=== PATIENT | female | born 1930 | race Caucasian/White ===

== ENCOUNTER 2018-01-13 16:02 | Observation (INO) ==
--- NOTE | 2018-01-13 16:35 | Emergency Department Note ---
Disposition Clinical Impression: Transient cerebral ischemia Qualifiers: Transient cerebral ischemia type: unspecified Qualified Code(s): G45.9 - Transient cerebral ischemic attack, unspecified Disposition: Admitted As Inpatient Time of Disposition: 18:00 (Dr Henson) Neuro HPI - General Chief Complaint: ED Neuro Symptoms/Deficit Stated Complaint: numbness right arm Time Seen by Provider: 01/13/18 16:25 Source: patient, family Limitations: no limitations Nursing Notes Reviewed: Yes Vital Signs Reviewed: Yes - History of Present Illness Onset of Symptoms Date: 01/13/18 Onset of Symptoms Time: 15:00 Timing confirmed by: family member Location: right face (lip), right arm (hand) History of same: No Severity: mild Quality: weakness, tingling Symptoms Improving: Yes Improves with: time Worsens with: none Context: other (She went to bed around 2 PM after lunch and woke up around 3:15 complaining of numbness on the right forearm and perioral area. Daughter states she was not feeling well today and has been sleeping but was able to eat lunch with no complications. The patient's symptom is currently improved. The daughter thought she may have had some drooping on her right face. The patient was also recently prescribed through [facility] for her A. fib and was supposed to start it today.) On Anticoagulants: Yes (Aspirin and supposed to start xarelto today) Associated symptoms: Reports: fever/chills, weakness. Denies: confusion, chest pain, cough, diaphoresis, headaches, loss of appetite, malaise, nausea/vomiting , vertigo, seizures, shortness of breath, syncope Treatments Prior to Arrival: Aspirin - Related Data Home Medications: Home Medications Medication Instructions Recorded Confirmed Acetaminophen [Acetaminophen ER] 650 mg PO BID 05/21/17 01/13/18 Aspirin 81 mg PO DAILY 05/21/17 01/13/18 Cholecalciferol (D-3) [Vitamin D] 2,000 unit PO DAILY 05/21/17 01/13/18 Cyanocobalamin (Vitamin B-12) 500 mcg PO DAILY 05/21/17 01/13/18 [Vitamin B12] Diltiazem CD (24hr) [Cardizem CD] 240 mg PO DAILY 05/21/17 01/13/18 Hyoscyamine SL [Levsin SL] 0.125 mg SL TID 05/21/17 01/13/18 Lisinopril [Zestril] 40 mg PO DAILY 05/21/17 01/13/18 Loratadine [Claritin] 10 mg PO DAILY 05/21/17 01/13/18 Lovastatin [Altoprev] 80 mg PO DAILY 05/21/17 01/13/18 Omeprazole [PriLOSEC] 20 mg PO DAILY 05/21/17 01/13/18 Furosemide [Lasix] 20 mg PO DAILY 10/05/17 01/13/18 Allergies/Adverse Reactions: Allergies Allergy/AdvReac Type Severity Reaction Status Date / Time codeine Allergy Agitated Verified 01/13/18 16:03 All systems ED: reviewed and negative except as stated. Review of Systems: As Per HPI Past Medical History - Past Medical History Medical history: Reports: arthritis, COPD, coronary artery disease, fibromyalgia , GERD, hyperlipidemia, hypertension, other Surgical history: Reports: cataract, cholecystectomy Psychiatric history: Reports: no psych history BELT CUTTER history: Reports: no BELT CUTTER history - Social History Smoking Status: Never smoker Smokeless Tobacco Status: No Alcohol use: Reports: occasionally Drug use: Reports: none Physical Exam - General Limitations: no limitations General appearance: alert - Head Head exam: atraumatic, normocephalic, normal inspection - Eye Eye exam: Present: normal appearance, PERRL, EOMI - ENT ENT exam: normal exam, normal oropharynx, mucous membranes moist - Neck Neck exam: Present: normal inspection, full ROM, trachea midline - Chest Chest inspection: Present: normal inspection, symmetric chest wall rise - Respiratory Respiratory exam: Present: normal lung sounds bilaterally - Cardiovascular Cardiovascular exam: Present: regular rate, irregular rhythm, normal heart sounds. Absent: JVD - Abdominal Exam Abdominal exam: Present: soft, Non-Tender. Absent: tenderness, distention, guarding, rebound, rigidity - Extremities Exam Extremities exam: Present: normal inspection, full ROM. Absent: tenderness, pedal edema - Expanded Lower Extremity Exam Hip/Pelvis exam: Present: normal inspection, full ROM - Psychiatric Psychiatric exam: Present: normal affect, normal mood - Skin Skin exam: Present: warm, dry, intact, normal color Course Vital Signs Temperature 100.1 F H 01/13/18 16:05 Pulse Rate 65 01/13/18 16:05 Respiratory Rate 24 01/13/18 16:05 Blood Pressure 148/73 01/13/18 16:05 O2 Sat by Pulse Oximetry 90 01/13/18 16:05 Temperature 97.8 F 01/14/18 06:34 Pulse Rate 76 01/14/18 06:34 Respiratory Rate 18 01/14/18 06:34 Blood Pressure 148/76 01/14/18 06:34 O2 Sat by Pulse Oximetry 94 01/14/18 06:34 Oxygen Delivery Oxygen Delivery Nasal Cannula Neuro Symptoms/Deficit - [facility] Narrative Medical decision making narrative: May have potential TIA secondary to paresthesia of the arm and perioral area. The patient also sleeps on the right upper extremity which could contribute to her current complaint. The patient's stroke scale was 1 but otherwise globally normal on exam. Diagnostic and laboratory results were also unremarkable. The patient will be admitted to the hospital for observation will be started on her xarelto and aspirin. He should and family are amenable with current disposition and plan. Discussed the case with hospitalist and agreed to further treat and evaluate the patient. - Differential Diagnosis Likely: cerebrovascular accident, transient cerebral ischemia, peripheral neuropathy, delirium - Medical Records Medical records reviewed: Yes I reviewed the patient's medical records. - Lab Data Lab results reviewed: Yes I reviewed the patient's lab results. Result diagrams: 01/13/18 16:46 01/13/18 16:46 Lab Results 01/13/18 01/13/18 01/13/18 Range/Units 16:19 16:46 16:46 WBC 7.6 (4.3-11.1) K/mcL RBC 5.16 H (3.82-4.97) M/mcL Hgb 15.6 H (11.5-15.4) g/dL Hct 46.5 H (35.3-44.9) % MCV 90.1 (83.0-100.0) fL MCH 30.2 (28.0-33.3) pg MCHC 33.5 (31.6-35.5) g/dL RDW 14.1 (11.5-14.5) % Plt Count 234 (140-400) K/mcL MPV 10.3 (9.4-12.4) fL Immature Gran % 0.3 (0-4) % Seg Neutrophils % 76.2 % Lymphocytes % 14.7 % Monocytes % 7.0 % Eosinophils % 0.9 % Basophils % 0.9 % Neutrophils # 5.8 (1.6-8.9) K/mcL Lymphocytes # 1.1 (0.6-4.6) K/mcL Monocytes # 0.5 (0.0-1.3) K/mcL Eosinophils # 0.1 (0.0-0.6) K/mcL Basophils # 0.1 (0.0-0.2) K/mcL PT 11.2 (9.4-12.1) Seconds INR 1.0 APTT 30.8 (26.0-36.0) Seconds Sodium (136-145) mEq/L Potassium (3.5-5.1) mEq/L Chloride (98-107) mEq/L Carbon Dioxide (23-29) mEq/L BUN (8-23) mg/dL Creatinine (0.60-1.20) mg/dL Est GFR ( Amer) (> 60) Est GFR (Non-Af Amer) (> 60) BUN/Creatinine Ratio (6-26) Glucose (70-105) mg/dL POC Glucose 109 H (70-99) mg/dL Calculated Osmolality (280-300) Calcium (8.6-10.3) mg/dL Troponin I (< 0.04) ng/mL Urine Color (Yellow) Urine Clarity (Clear) Urine pH (5.0-8.0) pH Units Ur Specific White (1.010-1.025) Urine Protein (Neg-Trace) mg/dL Urine Glucose (UA) (Normal) mg/dL Urine Ketones (Negative) mg/dL Urine Blood (Negative) Urine Nitrite (Negative) Urine Bilirubin (Negative) Urine Urobilinogen (Normal) mg/dL Ur Leukocyte Esterase (Negative) Urine Microscopic RBC (0-3) per hpf Ur Squamous Epith Cells (None-Few) per lpf Urine Bacteria (None-Few) per hpf Urine Mucus (Few) Ur Culture Indicated? (NO) Ethyl Alcohol (Less than 10) mg/dL 01/13/18 01/13/18 Range/Units 16:46 17:28 WBC (4.3-11.1) K/mcL RBC (3.82-4.97) M/mcL Hgb (11.5-15.4) g/dL Hct (35.3-44.9) % MCV (83.0-100.0) fL MCH (28.0-33.3) pg MCHC (31.6-35.5) g/dL RDW (11.5-14.5) % Plt Count (140-400) K/mcL MPV (9.4-12.4) fL Immature Gran % (0-4) % Seg Neutrophils % % Lymphocytes % % Monocytes % % Eosinophils % % Basophils % % Neutrophils # (1.6-8.9) K/mcL Lymphocytes # (0.6-4.6) K/mcL Monocytes # (0.0-1.3) K/mcL Eosinophils # (0.0-0.6) K/mcL Basophils # (0.0-0.2) K/mcL PT (9.4-12.1) Seconds INR APTT (26.0-36.0) Seconds Sodium 135 L (136-145) mEq/L Potassium 3.7 (3.5-5.1) mEq/L Chloride 100 (98-107) mEq/L Carbon Dioxide 28 (23-29) mEq/L BUN 6 L (8-23) mg/dL Creatinine 0.72 (0.60-1.20) mg/dL Est GFR ( Amer) > 60 (> 60) Est GFR (Non-Af Amer) > 60 (> 60) BUN/Creatinine Ratio 8 (6-26) Glucose 110 H (70-105) mg/dL POC Glucose (70-99) mg/dL Calculated Osmolality 278 L (280-300) Calcium 8.9 (8.6-10.3) mg/dL Troponin I < 0.03 (< 0.04) ng/mL Urine Color Yellow (Yellow) Urine Clarity Clear (Clear) Urine pH 7.0 (5.0-8.0) pH Units Ur Specific White 1.015 (1.010-1.025) Urine Protein Negative (Neg-Trace) mg/dL Urine Glucose (UA) Normal (Normal) mg/dL Urine Ketones Trace H (Negative) mg/dL Urine Blood Trace-intact H (Negative) Urine Nitrite Negative (Negative) Urine Bilirubin Negative (Negative) Urine Urobilinogen Normal (Normal) mg/dL Ur Leukocyte Esterase Negative (Negative) Urine Microscopic RBC 0-3 (0-3) per hpf Ur Squamous Epith Cells Few (None-Few) per lpf Urine Bacteria Few (None-Few) per hpf Urine Mucus Few (Few) Ur Culture Indicated? NO (NO) Ethyl Alcohol < 10 (Less than 10) mg/dL - Radiology Data Radiology results reviewed: Yes I reviewed the patient's radiology results. Head CT 01/13/18 16:54 IMPRESSION: No acute intracranial abnormality. D/ / Genoveva Tavares Cha, MD / Genoveva Tavares Cha, MD Interpreting Provider: Genoveva Tavares Cha, MD - EKG Data EKG attestation: Yes I reviewed and interpreted this EKG. NIH Stroke Scale - Level of Consciousness LOC: Alert - LOC Questions LOC Questions: Answers one correctly - LOC Commands LOC Commands: Performs both correctly - Best Gaze Best Gaze: Normal - Visual Visual: No visual loss - Facial Palsy Facial Palsy: Normal - Motor Arms Motor Arm-Left: No drift for 10 seconds Motor Arm-Right: No drift for 10 seconds - Motor Legs Motor Leg-Left: No drift for 5 seconds Motor Leg-Right: No drift for 5 seconds - Limb Ataxia Limb Ataxia: Normal, No Ataxia - Sensory Sensory: Normal - Best Language Best Language: No aphasia - Dysarthria Dysarthria: Normal - Extinction and Inattention Extinction and Inattention: Normal - NIHSS Total Score NIHSS Total Score: 1 TPA Checklist - Source Information Source: Patient - Eligibilty for IV tPA 1. LKW equal to or less than 4.5 hours be before treatment: Yes 2. Clinical diagnosis of ischemic stroke causing deficit: No 3. Age 18 years or older: Yes - Contraindications 4. Evidence of intracranial hemorrhage on pretreatment CT: No 5. Presentation suggests subarachnoid hem, even if CT normal: No 6. CT shows multilobar infarction: No 7. Known neoplasm, arteriovenous malformation, or aneurysm: No 8. Significant head trauma (w/ LOC) or CVA in last 3 months: No 9. BP elevated (systolic > 185 or diastolic > 110): No 10. Abnormal Blood Glucose (<50 or >400mg/dl): No 11. Active internal bleeding [PM.TPA15]: No 12. Known bleeding risk (including; not limited to 13-15): No 13. Heparin/argatroban/bivalirudin w/in 48hrs & PTT > normal: No 14. Platelet count less than 100,000/MM3: No 15. Current or recent use of anticoagualants (see protocol): No - Warnings/Precautions Considerations 16. Prior ischemic stroke within last 3 months: No 17. Recent history of intracranial hemorrhage: No 18. : No 19. Current/recent use Effient (7 days) or Brilinta (5 days): No 20. Arterial puncture at non compressible site or LP >7days: No 21. Major surgery or serious trauma in last 14 days: No 22. GI or urinary tract hemorrhage in last 21 days: No 23. AK involving left anterior myocardium in last 3 months: No 24. Suspected or known infective endocarditis/pericarditis: No - LKW: 3-4.5 hrs Add. Warnings/Precautions 21. oral anticoag other than warfarin regardles of last dose: Yes Patient/family understanding: The patient/family members have been counseled and understood the risk, benefit , and alternatives of treatment.
[2018-01-13 16:53] LABS: Basophils # 0.1 K/mcL (0.0-0.2); Basophils % 0.9 %; Eosinophils # 0.1 K/mcL (0.0-0.6); Eosinophils % 0.9 %; Hematocrit 46.5 % (35.3-44.9); Hemoglobin 15.6 g/dL (11.5-15.4); Immature Granulocytes % 0.3 % (0-4); Lymphocytes # 1.1 K/mcL (0.6-4.6); Lymphocytes % 14.7 %; Mean Corpuscular HGB Conc 33.5 g/dL (31.6-35.5); Mean Corpuscular Hemoglobin 30.2 pg (28.0-33.3); Mean Corpuscular Volume 90.1 fL (83.0-100.0); Mean Platelet Volume 10.3 fL (9.4-12.4); Monocytes # 0.5 K/mcL (0.0-1.3); Neutrophils # 5.8 K/mcL (1.6-8.9); Platelet Count 234 K/mcL (140-400); Red Blood Count 5.16 M/mcL (3.82-4.97); Red Cell Distribution Width 14.1 % (11.5-14.5); Segmented Neutrophils % 76.2 %
[2018-01-13 17:02] LABS: Prothrombin Time 11.2 Seconds (9.4-12.1)
[2018-01-13 17:04] LABS: Activated Partial Thrombo Time 30.8 Seconds (26.0-36.0)
[2018-01-13 17:14] LABS: BUN/Creatinine Ratio 8 (6-26); Blood Urea Nitrogen 6 mg/dL (8-23); Calcium 8.9 mg/dL (8.6-10.3); Carbon Dioxide 28 mEq/L (23-29); Chloride 100 mEq/L (98-107); Ethanol < 10 mg/dL (Less than 10); Glucose 110 mg/dL (70-105); Osmolality,Calculated 278 (280-300); Potassium 3.7 mEq/L (3.5-5.1); Sodium 135 mEq/L (136-145); Troponin I < 0.03 ng/mL (< 0.04); eGFR For African Americans > 60 (> 60); eGFR For Non-African Americans > 60 (> 60)
[2018-01-13 17:38] LABS: Bilirubin,Urine Negative (Negative); Blood,Urine Trace-intact (Negative); Clarity,Urine Clear (Clear); Color,Urine Yellow (Yellow); Glucose,Urine (UA) Normal (Normal); Ketones,Urine Trace mg/dL (Negative); Leukocyte Esterase,Urine Negative (Negative); Nitrite,Urine Negative (Negative); Protein,Urine Negative (Neg-Trace); Specific Gravity,Urine 1.015 (1.010-1.025); Urobilinogen,Urine Normal (Normal)
[2018-01-13 17:45] LABS: Bacteria,Urine Few per hpf (None-Few); Mucus,Urine Few (Few); RBC,Urine 0-3 per hpf (0-3); Squamous Epithelial Cell,Urine Few per lpf (None-Few)
[2018-01-13] MEDS ORDERED: Aspirin 81 MG TAB.CHEW PO STA (19:01)
[2018-01-13] MEDS ORDERED: *HR* Rivaroxaban 10 MG TABLET PO STA (19:01)
[2018-01-13] MEDS ORDERED: *HR* OxyCODONE Oral Soln 5 MG/5 ML UD.LIQ PO PRN (21:47)
[2018-01-13] MEDS ORDERED: *HR* HYDROcodone/Acet 5/325 mg TABLET PO PRN (21:47)
[2018-01-13] MEDS ORDERED: Acetaminophen 325 MG TABLET PO PRN (21:47)
[2018-01-13] MEDS ORDERED: Naloxone 0.4 MG/ML INJ IVP PRN (21:47)
[2018-01-13] MEDS ORDERED: Ondansetron 4 MG/2 ML VIAL IVP PRN (21:47)
[2018-01-14] MEDS: Hyoscyamine SL 0.125 MG TAB.SUBL SL SCH ×4 (06:05→20:57)
[2018-01-14] MEDS: Diltiazem CD (24hr) 240 MG CAPSULE PO SCH (08:17)
[2018-01-14] MEDS: Lisinopril 20 MG TABLET PO SCH (08:17)
[2018-01-14] MEDS: Cholecalciferol (D-3) 1,000 UNIT TABLET PO SCH (08:17)
[2018-01-14] MEDS: Aspirin 81 MG TAB.CHEW PO SCH (08:17)
[2018-01-14] MEDS: Cyanocobalamin (B-12) 1,000 MCG TABLET PO SCH (08:18)
[2018-01-14] MEDS: Loratadine 10 MG TABLET PO SCH (08:18)
[2018-01-14] MEDS: Furosemide 20 MG TABLET PO SCH (08:18)
--- NOTE | 2018-01-14 09:05 | Internal Med History&Physical ---
Date of Encounter: 01/14/18 Time of Encounter: 08:30 Assessment and Plan (1) Transient cerebral ischemia Current visit: Yes Status: Acute Appears resolved. Carotid Doppler has been ordered. Will continue aspirin and start Xarelto. Qualifiers: Transient cerebral ischemia type: unspecified Qualified Code(s): G45.9 - Transient cerebral ischemic attack, unspecified (2) Atrial fibrillation Current visit: Yes Status: Acute We will start Xarelto. Qualifiers: Atrial fibrillation type: chronic Qualified Code(s): I48.2 - Chronic atrial fibrillation (3) Hypertension Current visit: Yes Status: Chronic Continue Cardizem, Lasix, and Zestril. Qualifiers: Hypertension type: essential hypertension Qualified Code(s): I10 - Essential (primary) hypertension Internal Medicine - H&P: HPI Chief complaint: Acute neurologic deficit Admitted From: Emergency Dept Plans for Post Hospital Care: Home History of present illness: Ms. Sheridan is a 87 year old female who came to emergency room stating she awakened from a nap approximately 3:15 PM and noted numbness in her right forearm and hand. She reported emergency room and was also perioral numbness. The emergency room report also states the daughter felt there may been some facial asymmetry. She was evaluated emergency room and admitted to [facility] floor for ongoing care needs. She has history of atrial fibrillation duration unknown. She states she was recently prescribed Xarelto by Dr. Stewart her server developer but has not picked up the medication. She has been maintained on aspirin previously which was continued with initiation of Xarelto. Her cardiovascular history significant for hypertension but no NV heart failure DVT or pulmonary embolus. She reports having a heart catheter many years ago at [facility] and was told she had three-vessel disease but no surgery was needed. She had nuclear stress test at [facility] which showed perfusion imaging and EKG negative for ischemia. An echocardiogram 10/25/2017 showed LVEF of 65%. There was reported biatrial enlargement. There was moderate calcified aortic valve leaflets but no significant stenosis. There was moderate mitral regurgitation, moderate tricuspid regurgitation, and estimated RVSP of 61 mmHg. Neurologic history is negative for previous similar deficits. She denies large distribution strokes or seizures. Prior carotid Doppler studies 03/08/2016 showed minimal plaque present. Past Med Surg Social Fam HX - Past Medical History Medical history: arthritis, COPD, coronary artery disease, fibromyalgia, GERD, hyperlipidemia, hypertension, other Psychiatric history: no psych history - Past Surgical History Surgical History: cataract, cholecystectomy - Social History Smoking Status: Never smoker Smokeless Tobacco Status: No Alcohol use: occasionally Drug use: none Internal Medicine - H&P: Meds Acetaminophen [Acetaminophen ER] 650 mg PO BID 05/21/17 [History] Aspirin 81 mg PO DAILY 05/21/17 [History] Cholecalciferol (D-3) [Vitamin D] 2,000 unit PO DAILY 05/21/17 [History] Cyanocobalamin (Vitamin B-12) [Vitamin B12] 500 mcg PO DAILY 05/21/17 [History] Diltiazem CD (24hr) [Cardizem CD] 240 mg PO DAILY 05/21/17 [History] Hyoscyamine SL [Levsin SL] 0.125 mg SL TID 05/21/17 [History] Lisinopril [Zestril] 40 mg PO DAILY 05/21/17 [History] Loratadine [Claritin] 10 mg PO DAILY 05/21/17 [History] Lovastatin [Altoprev] 80 mg PO DAILY 05/21/17 [History] Omeprazole [PriLOSEC] 20 mg PO DAILY 05/21/17 [History] Furosemide [Lasix] 20 mg PO DAILY 10/05/17 [History] 3 Allergy/AdvReac Type Severity Reaction Status Date / Time codeine Allergy Agitated Verified 01/13/18 16:03 All Systems PM: A 10-system review of systems was performed and is negative for pertinent findings except as documented above in the HPI. Review of systems: Gen.: She states her weight has been stable for several months Cardiovascular: As per history of present illness Respiratory: She is a lifelong nonsmoker. She reports she had a "collapsed lung " several months ago and had bronchoscopy. She reports her lung has returned to normal function. She does not know further details. She denies chronic lung disease and does not use home oxygen. GI: She has had cholecystectomy. She has hemorrhoids. She denies disorders of her liver or exocrine pancreas : She denies hematuria dysuria or kidney stones Neurologic: As per history of present illness Endocrine: She has hyperlipidemia. She denies diabetes or thyroid disease Hematology/oncology: She denies blood disorders cancers or anemia Psychiatric: She denies anxiety depression or other mental health issues Muscle skeletal: She has DJD and degenerative disc disease. She was told she had borderline fibromyalgia. She denies other bone joint or muscle disorders. - Constitutional Vitals: Temp Pulse Resp BP Pulse Ox 97.8 F 76 18 148/76 94 01/14/18 06:34 01/14/18 06:34 01/14/18 06:34 01/14/18 06:34 01/14/18 06:34 Exam: Gen.: She is well developed well-nourished female resting comfortably in bed who appears in no acute distress HEENT: Head is atraumatic and normocephalic. Eyes: EOMI. There is no scleral icterus. Mouth: Mucosa is moist. Neck: Supple and nontender. There is no thyromegaly or adenopathy noted. Heart: Irregularly irregular without murmurs or gallops Lungs: No wheezes or crackles are heard. Abdomen: Soft and nontender. No masses or guarding are noted. Extremities: There is no cyanosis edema or clubbing noted. Dorsalis pedis and posttibial pulses are trace to 1+ palpable bilaterally. Her feet are warm to touch. She appears to have mild chronic venous stasis pigmentation changes of her lower legs and feet. Neurologic: Mental status: She is talkative and a good historian. Speech is well articulated and appropriate. Cranial nerves: Smile is symmetric. Forehead wrinkles bilaterally. Tongue protrudes midline. EOMI. Motor: There is no pronator drift. Ankle flexion and extension strength against resistance is normal and symmetric. Rapid finger movement testing is symmetric. Cerebellar: Finger to nose is intact bilaterally. Skin: Warm and dry Internal Med - H&P Results - Labs CBC & Chem 7: 01/13/18 16:46 01/13/18 16:46
[2018-01-14] MEDS ORDERED: *HR* Rivaroxaban 10 MG TABLET PO SCH (17:00)
[2018-01-15 06:53] VITALS: BP 140/88
[2018-01-15] MEDS: Lisinopril 20 MG TABLET PO SCH (09:02)
[2018-01-15] MEDS: Aspirin 81 MG TAB.CHEW PO SCH (09:03)
[2018-01-15] MEDS: Furosemide 20 MG TABLET PO SCH (09:03)
[2018-01-15] MEDS: Diltiazem CD (24hr) 240 MG CAPSULE PO SCH (09:03)
[2018-01-15] MEDS: Loratadine 10 MG TABLET PO SCH (09:03)
[2018-01-15] MEDS: Cholecalciferol (D-3) 1,000 UNIT TABLET PO SCH (09:03)
[2018-01-15] MEDS: Cyanocobalamin (B-12) 1,000 MCG TABLET PO SCH (09:03)
[2018-01-15] MEDS: Hyoscyamine SL 0.125 MG TAB.SUBL SL SCH (09:03)
--- NOTE | 2018-01-15 09:34 | Discharge Summary ---
Date of Encounter: 01/15/18 Time of Encounter: 09:24 - Discharge Diagnosis (1) Transient cerebral ischemia Priority: Primary Status: Resolved Qualifiers: Transient cerebral ischemia type: unspecified Qualified Code(s): G45.9 - Transient cerebral ischemic attack, unspecified (2) Atrial fibrillation Priority: Secondary Status: Chronic Qualifiers: Atrial fibrillation type: chronic Qualified Code(s): I48.2 - Chronic atrial fibrillation (3) Hypertension Priority: Secondary Status: Chronic Qualifiers: Hypertension type: essential hypertension Qualified Code(s): I10 - Essential (primary) hypertension Hospital course: Ms. Sheridan is a 87 year old female who came to emergency room stating she awakened from a nap approximately 3:15 PM and noted numbness in her right forearm and hand. She reported in emergency room there was also perioral numbness. The emergency room report also states the daughter felt there may been some facial asymmetry. She was evaluated in emergency room and admitted to [facility] for ongoing care needs. Initial orders were written by the emergency room physician. I saw her on January 14 and performed the history and physical. Her neurologic deficit appeared resolved by the time I saw her. She was started on aspirin and Xarelto through emergency room. I ordered carotid Doppler studies. There was bilateral bifurcation nonstenotic plaques seen. On January 15 she felt stable for discharge home. She had no recurrence of neurologic deficit. She had a small nosebleed episode that was easily controlled prior to discharge. She will follow with her PCP Dr. Cory Bhandari within 1 week. - Time Spent with Patient Total time spent providing and/or coordinating discharge services: - Discharge Medications Home Medications: Acetaminophen [Acetaminophen ER] 650 mg PO BID 05/21/17 [History] Aspirin 81 mg PO DAILY 05/21/17 [History] Cholecalciferol (D-3) [Vitamin D] 2,000 unit PO DAILY 05/21/17 [History] Cyanocobalamin (Vitamin B-12) [Vitamin B12] 500 mcg PO DAILY 05/21/17 [History] Diltiazem CD (24hr) [Cardizem CD] 240 mg PO DAILY 05/21/17 [History] Hyoscyamine SL [Levsin Sl] 0.125 mg SL TID 05/21/17 [History] Lisinopril [Zestril] 40 mg PO DAILY 05/21/17 [History] Loratadine [Claritin] 10 mg PO DAILY 05/21/17 [History] Lovastatin [Altoprev] 80 mg PO DAILY 05/21/17 [History] Omeprazole [PriLOSEC] 20 mg PO DAILY 05/21/17 [History] Furosemide [Lasix] 20 mg PO DAILY 10/05/17 [History] Rivaroxaban [Xarelto] 20 mg PO 1700 tablet 01/15/18 [Rx] Allergies/Adverse Reactions: 3 Allergy/AdvReac Type Severity Reaction Status Date / Time codeine Allergy Agitated Verified 01/13/18 16:03 Date of admission: 01/13/18 20:00 Primary care physician: Cory Bhandari DO - Constitutional Vitals: Temp Pulse Resp BP Pulse Ox 97.6 F 73 16 140/88 95 01/15/18 06:52 01/15/18 06:52 01/15/18 06:52 01/15/18 06:52 01/15/18 06:52 - Patient Status Disposition: Home, Self-Care Functional capacity at discharge: independent ambulation Overall status at discharge: patient is progressing back to baseline - Discharge Instructions Follow Up With: Cory Bhandari DO [Primary Care Provider] - 1 week - Diet and Activity Activity: resume usual activities as tolerated Diet: advance to your usual diet
[2018-01-15] MEDS ORDERED: Ipratropium/Albuterol Neb 3 ML IH PRN (11:50)
--- NOTE | 2018-01-17 05:22 | Electrocardiograph Report ---
[address] [place] [id number] Test Date: 2018-01-13 Pat Name: Barbara Sheridan Department: [id number] Room: [facility] Gender: F Ergonomics Technician: [id number] : 1930 Requested By: Dev Ramirez Order Number: [id number] Reading MD: Robby Grider Measurements Intervals Nahma Rate: 75 P: FL: 0 QRS: 5 QRSD: 76 T: 62 QT: 370 QTc: 399 Interpretive Statements ATRIAL FIBRILLATION SEPTAL MYOCARDIAL INFARCTION, OF INDETERMINATE AGE Electronically Signed On 01-17-2018 5:20:42 EDT by Robby Grider
== END 2018-01-15 16:36 | disposition home or self-care (01) ==
LOC: EMEROOPIK 16:02 → INPPIK 16:02
PROVIDERS: ADMIT Internal Medicine; ATTEND Internal Medicine

== ENCOUNTER 2018-11-29 17:20 | Inpatient (IN) ==
[2018-11-29 17:36] LABS: Hematocrit 43.5 % (35.3-44.9); Hemoglobin 14.9 g/dL (11.5-15.4); Mean Corpuscular HGB Conc 34.3 g/dL (31.6-35.5); Mean Corpuscular Hemoglobin 32.2 pg (28.0-33.3); Mean Platelet Volume 10.4 fL (9.4-12.4); Platelet Count 224 K/mcL (140-400); Red Blood Count 4.63 M/mcL (3.82-4.97); Red Cell Distribution Width 13.3 % (11.5-14.5); White Blood Count 8.6 K/mcL (4.3-11.1)
[2018-11-29 17:43] LABS: Prothrombin Time 11.2 Seconds (9.4-12.1)
[2018-11-29 17:46] LABS: Activated Partial Thrombo Time 32.5 Seconds (26.0-36.0)
[2018-11-29 17:49] LABS: Bilirubin,Urine Negative (Negative); Blood,Urine Trace-intact (Negative); Clarity,Urine Clear (Clear); Color,Urine Yellow (Yellow); Glucose,Urine (UA) Normal (Normal); Ketones,Urine Negative (Negative); Leukocyte Esterase,Urine Negative (Negative); Nitrite,Urine Negative (Negative); PH,Urine 6.5 pH Units (5.0-8.0); Protein,Urine Negative (Neg-Trace); Urobilinogen,Urine Normal (Normal)
[2018-11-29 17:54] LABS: BUN/Creatinine Ratio 14 (6-26); Blood Urea Nitrogen 8 mg/dL (8-23); Calcium 9.2 mg/dL (8.6-10.3); Carbon Dioxide 27 mEq/L (23-29); Chloride 99 mEq/L (98-107); Glucose 111 mg/dL (70-105); Osmolality,Calculated 283 (280-300); Potassium 3.4 mEq/L (3.5-5.1); Sodium 137 mEq/L (136-145); eGFR For African Americans > 60 (> 60); eGFR For Non-African Americans > 60 (> 60)
[2018-11-29 17:55] LABS: Troponin I < 0.03 ng/mL (< 0.04)
[2018-11-29 17:58] LABS: Mucus,Urine Few (Few); RBC,Urine 0-3 per hpf (0-3); Squamous Epithelial Cell,Urine Few per lpf (None-Few); WBC,Urine 0-3 per hpf (0-3)
[2018-11-29] MEDS ORDERED: Aspirin 325 MG TABLET PO ONE (18:12)
--- NOTE | 2018-11-29 18:16 | Emergency Department Note ---
Disposition Clinical Impression: Cerebrovascular accident Qualifiers: CVA mechanism: unspecified Qualified Code(s): I63.9 - Cerebral infarction, unspecified Disposition: Admitted As Inpatient Condition: Serious Referrals: Cory Bhandari DO [Primary Care Provider] - Time of Disposition: 18:24 Neuro HPI - General Chief Complaint: ED Neuro Symptoms/Deficit Stated Complaint: right sided facial droop Time Seen by Provider: 11/29/18 17:27 Source: patient, family, EMS Mode of arrival: EMS Limitations: altered mental status Nursing Notes Reviewed: Yes Vital Signs Reviewed: Yes - History of Present Illness Onset of Symptoms Date: 11/29/18 Onset of Symptoms Time: 17:15 Symptom Onset Unknown: Yes Timing confirmed by: family member Location: speech, right face, right arm, right leg History of same: No Severity: severe Quality: weakness, constant Improves with: none Worsens with: none Context: sudden onset On Anticoagulants: No Treatments Prior to Arrival: prehospital POC glucose - Related Data Home Medications: Home Medications Medication Instructions Recorded Confirmed Aspirin [Lo-Dose Aspirin EC] 81 mg PO DAILY 08/20/18 08/20/18 Cholecalciferol (D-3) [Vitamin D] 1,000 unit PO DAILY 08/20/18 08/20/18 Cyanocobalamin (Vitamin B-12) 1,000 mcg PO DAILY 08/20/18 08/20/18 [Vitamin B-12] Diltiazem HCl [Diltiazem 24Hr Cd] 240 mg PO DAILY 08/20/18 08/20/18 Lovastatin [Mevacor] 20 mg PO HS 08/20/18 08/20/18 Previous Rx's Medication Instructions Recorded Lisinopril [Zestril] 20 mg PO DAILY #30 tablet 08/21/18 Allergies/Adverse Reactions: Allergies Allergy/AdvReac Type Severity Reaction Status Date / Time codeine Allergy Agitated Verified 08/20/18 11:02 Limitations: ROS unobtainable due to patients medical condition Past Medical History - Past Medical History Attestation: Yes The following information was validated with the patient. 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 Absent: scleral icterus, conjunctival injection - ENT ENT exam: mucous membranes moist, normal external ear exam - Neck Neck exam: Present: normal inspection, trachea midline. Absent: meningismus - Chest Chest inspection: Present: normal inspection, symmetric chest wall rise. Ab sent: tenderness - Respiratory Respiratory exam: Present: normal lung sounds bilaterally. Absent: respiratory distress, wheezes - Cardiovascular Cardiovascular exam: Present: regular rate, normal rhythm, normal heart sounds - Abdominal Exam Abdominal exam: Present: soft, Non-Tender, normal bowel sounds - Extremities Exam Extremities exam: Present: normal inspection. Absent: pedal edema - Neurological Exam Neurological exam: Present: alert, motor sensory deficit (Patient's right arm is flaccid and her right leg is flaccid. She actually has a right-sided facial droop as well and seems to have an expressive and receptive aphasia.) - Skin Skin exam: Present: warm, dry. Absent: rash Course Course Narrative: Patient arrives emergency Department with report of stroke in the field that is 30-40 minutes prior to arrival for an onset time. We immediately went over to CT scan with the patient. My initial visit and the CT scan was no bleed. By time we got the patient off the table she was moving her right upper extremity normally and was starting to move her right lower extremity. I spoke with the daughter at the bedside who is the patient's power of anchor operator. We entered into a shared decision-making discussion. We talked about TPA and endovascular treatment and transfer for stroke care. The daughter says that the patient would not want any of this. The daughter used the term comfort care but does not have formal documentation of the DNR order. Because of the daughter's being power of anchor operator and representing the patient with regards to healthcare, we will honor the comfort care order. Thus we called off the stroke alert. We did not get robots involved, patient will not be given TPA. - Reevaluation(s) Reevaluation #1: At this point patient sitting upright and using her arms and her legs without any problem. She still has a right facial droop. She still seems to have an expressive and receptive aphasia but she no longer has her eyes fixated to the left. She is tracking fine. When I raised my voice were allowed thinking that she was hard of hearing she startled and then smiled about being startled but she could not answer the questions and she could not follow the commands. I spoke to the hospitalist, Dr. Henson and he asked that we administer an aspirin and admit the patient to the floor. Time: 18:22 - Consultations Consultation #1: Dr. Henson, hospitalist - I discussed case with the hospitalist. He is accepted the patient for admission. Time: 18:15 Vital Signs Temperature 98.7 F 11/29/18 17:22 Pulse Rate 72 11/29/18 17:22 Respiratory Rate 18 11/29/18 17:22 Blood Pressure 128/42 11/29/18 17:22 O2 Sat by Pulse Oximetry 95 11/29/18 17:22 Temperature 98.7 F 11/29/18 17:22 Pulse Rate 73 11/29/18 17:45 Respiratory Rate 18 11/29/18 17:45 Blood Pressure 158/75 11/29/18 17:45 O2 Sat by Pulse Oximetry 92 11/29/18 17:45 Oxygen Delivery Oxygen Delivery Nasal Cannula Neuro Symptoms/Deficit - Medical Records Medical records reviewed: Yes I reviewed the patient's medical records. - Lab Data Lab results reviewed: Yes I reviewed the patient's lab results. Result diagrams: 11/29/18 17:28 11/29/18 17:28 Lab Results 11/29/18 11/29/18 11/29/18 Range/Units 17:28 17:28 17:28 WBC 8.6 (4.3-11.1) K/mcL RBC 4.63 (3.82-4.97) M/mcL Hgb 14.9 (11.5-15.4) g/dL Hct 43.5 (35.3-44.9) % MCV 94.0 (83.0-100.0) fL MCH 32.2 (28.0-33.3) pg MCHC 34.3 (31.6-35.5) g/dL RDW 13.3 (11.5-14.5) % Plt Count 224 (140-400) K/mcL MPV 10.4 (9.4-12.4) fL PT 11.2 (9.4-12.1) Seconds INR 1.0 APTT 32.5 (26.0-36.0) Seconds Sodium 137 (136-145) mEq/L Potassium 3.4 L (3.5-5.1) mEq/L Chloride 99 (98-107) mEq/L Carbon Dioxide 27 (23-29) mEq/L BUN 8 (8-23) mg/dL Creatinine 0.59 L (0.60-1.20) mg/dL Est GFR ( Amer) > 60 (> 60) Est GFR (Non-Af Amer) > 60 (> 60) BUN/Creatinine Ratio 14 (6-26) Glucose 111 H (70-105) mg/dL Calculated Osmolality 283 (280-300) Calcium 9.2 (8.6-10.3) mg/dL Troponin I < 0.03 (< 0.04) ng/mL Urine Color (Yellow) Urine Clarity (Clear) Urine pH (5.0-8.0) pH Units Ur Specific [place] (1.010-1.025) Urine Protein (Neg-Trace) mg/dL Urine Glucose (UA) (Normal) mg/dL Urine Ketones (Negative) mg/dL Urine Blood (Negative) Urine Nitrite (Negative) Urine Bilirubin (Negative) Urine Urobilinogen (Normal) mg/dL Ur Leukocyte Esterase (Negative) Urine Microscopic RBC (0-3) per hpf Urine Microscopic WBC (0-3) per hpf Ur Squamous Epith Cells (None-Few) per lpf Urine Mucus (Few) Ur Culture Indicated? (NO) 11/29/18 Range/Units 17:44 WBC (4.3-11.1) K/mcL RBC (3.82-4.97) M/mcL Hgb (11.5-15.4) g/dL Hct (35.3-44.9) % MCV (83.0-100.0) fL MCH (28.0-33.3) pg MCHC (31.6-35.5) g/dL RDW (11.5-14.5) % Plt Count (140-400) K/mcL MPV (9.4-12.4) fL PT (9.4-12.1) Seconds INR APTT (26.0-36.0) Seconds Sodium (136-145) mEq/L Potassium (3.5-5.1) mEq/L Chloride (98-107) mEq/L Carbon Dioxide (23-29) mEq/L BUN (8-23) mg/dL Creatinine (0.60-1.20) mg/dL Est GFR ( Amer) (> 60) Est GFR (Non-Af Amer) (> 60) BUN/Creatinine Ratio (6-26) Glucose (70-105) mg/dL Calculated Osmolality (280-300) Calcium (8.6-10.3) mg/dL Troponin I (< 0.04) ng/mL Urine Color Yellow (Yellow) Urine Clarity Clear (Clear) Urine pH 6.5 (5.0-8.0) pH Units Ur Specific [place] 1.010 (1.010-1.025) Urine Protein Negative (Neg-Trace) mg/dL Urine Glucose (UA) Normal (Normal) mg/dL Urine Ketones Negative (Negative) mg/dL Urine Blood Trace-intact H (Negative) Urine Nitrite Negative (Negative) Urine Bilirubin Negative (Negative) Urine Urobilinogen Normal (Normal) mg/dL Ur Leukocyte Esterase Negative (Negative) Urine Microscopic RBC 0-3 (0-3) per hpf Urine Microscopic WBC 0-3 (0-3) per hpf Ur Squamous Epith Cells Few (None-Few) per lpf Urine Mucus Few (Few) Ur Culture Indicated? NO (NO) - Radiology Data Radiology results reviewed: Yes I reviewed the patient's radiology results. - EKG Data EKG attestation: Yes I reviewed and interpreted this EKG. EKG results narrative: Twelve-lead EKG performed at 1730 6 PM. Ordered, reviewed and interpreted by ED physician shows atrial fibrillation at a rate of 69. Normal axis. Good hour progression across corneum. No obvious acute ischemic changes. Intervals other than ID interval are within normal limits. TPA Checklist - LKW: 3-4.5 hrs Add. Warnings/Precautions Patient/family understanding: The patient/family members have been counseled and understood the risk, benefit, and alternatives of treatment. Critical Care Time Critical Care Time: Yes Total Critical Care Time: 30 Attestation: Stroke alert
[2018-11-29] MEDS ORDERED: Naloxone 0.4 MG/ML INJ IVP PRN (19:58)
[2018-11-29] MEDS ORDERED: Ondansetron 4 MG/2 ML VIAL IVP PRN (19:58)
[2018-11-29] MEDS: 0.9 % Sodium Chloride 1,000 ML IVC SCH (20:46)
[2018-11-30] MEDS ORDERED: *HR* Warfarin 7.5 MG TABLET PO ONE (12:21)
--- NOTE | 2018-11-30 12:33 | Internal Med History&Physical ---
Date of Encounter: 11/30/18 Time of Encounter: 11:50 Assessment and Plan (1) Cerebrovascular accident Current visit: Yes Status: Acute Suspect embolic etiology from underlying atrial fibrillation. She will be started on Coumadin. Lovenox will be given an aspirin will be continued. Qualifiers: CVA mechanism: unspecified Qualified Code(s): I63.9 - Cerebral infarction, unspecified (2) Hypokalemia Current visit: Yes Status: Acute Supplemental potassium will be given. (3) Atrial fibrillation Current visit: No Status: Chronic She will be started on Coumadin as per above Qualifiers: Atrial fibrillation type: chronic Qualified Code(s): I48.2 - Chronic atrial fibrillation (4) Hypertension Current visit: No Status: Chronic Vitals will be monitored with reasonable permissive hypertension allowed Qualifiers: Hypertension type: essential hypertension Qualified Code(s): I10 - Essential (primary) hypertension Internal Medicine - H&P: HPI Chief complaint: Acute neurologic deficit Admitted From: Emergency Dept Plans for Post Hospital Care: Home History of present illness: Ms. Sheridan is a 88 year old female who was brought to emergency room after her daughter noticed abrupt neurologic deficit with patient slumped toward her right side in the chair and having right arm weakness. She was aphasic in had decreased level of consciousness. She was evaluated in emergency room where head CT scan showed no evidence of bleed. Family did not want her transferred for aggressive workup or intervention. She was admitted to [facility] floor for ongoing care needs. She was hospitalized December 2017 at [facility] with TIA. Carotid Doppler study showed bilateral bifurcation nonstenotic plaque. She was placed on aspirin. Xarelto was given because of atrial fibrillation. Family reports she developed colitis with rectal bleeding from the Xarelto after a few doses so patient discontinued it herself. She was not started on any other OAC. She has maintained aspirin 81 mg daily. Family reports no other neurologic events since December 2017 hospitalization until present time. She has had no history of seizures. Past Med Surg Social Fam HX - Past Medical History Medical history: arthritis, COPD, coronary artery disease, fibromyalgia, GERD, hyperlipidemia, hypertension, TIA Additional medical history: AFIB, Colitis, TIA Psychiatric history: no psych history - Past Surgical History Surgical History: cataract, cholecystectomy Additional surgical history: hiatial hernia, - Social History Smoking Status: Never smoker Smokeless Tobacco Status: No Alcohol use: occasionally Drug use: none - Family History Daughter Hx Family Cancer: Yes (bilateral breast ca) Mother Hx Family Respiratory Disorders: Yes (PE causing ) Internal Medicine - H&P: Meds Aspirin [Lo-Dose Aspirin EC] 81 mg PO DAILY 08/20/18 [History] Cholecalciferol (D-3) [Vitamin D] 1,000 unit PO DAILY 08/20/18 [History] Cyanocobalamin (Vitamin B-12) [Vitamin B-12] 1,000 mcg PO DAILY 08/20/18 [History] Diltiazem HCl [Diltiazem 24Hr Cd] 240 mg PO DAILY 08/20/18 [History] Lovastatin [Mevacor] 20 mg PO HS 08/20/18 [History] Lisinopril [Zestril] 20 mg PO DAILY #30 tablet 08/21/18 [Rx] Acetaminophen [Acetaminophen ER] 650 mg PO Q6HR 11/29/18 [History] Albuterol Sulfate [Albuterol Inhaler] 1 puff IH Q6HR 11/29/18 [History] Allergy/AdvReac Type Severity Reaction Status Date / Time codeine Allergy Agitated Verified 08/20/18 11:02 All Systems PM: A 10-system review of systems was performed and is negative for pertinent findings except as documented above in the HPI. Review of systems: Review of systems from her December 2017 [facility] hospitalization were reviewed and revised as below. Gen.: Her weight has decreased from 61.235 kg on 01/13/2018 to present weight of 54.885 kg Cardiovascular: She has chronic atrial fibrillation but has not been on OAC as per history of present illness. She has hypertension but no CT heart failure DVT or pulmonary embolus. She reports having a heart catheter many years ago at [facility] and was told she had three-vessel disease but no surgery was needed. She had nuclear stress test 10/25/2017 at [facility] which showed perfusion imaging and EKG negative for ischemia. An echocardiogram 08/19/2018 showed LVEF of 65%. There was indeterminate diastolic function due to atrial fibrillation. There was mild aortic stenosis and mild tricuspid regurgitation. There were severe pulmonary hypertension with estimated RVSP of 67 mmHg. The interventricular septum and posterior wall thickness measurements were slightly elevated at 1.20 cm each. There was LAE at 4.60 cm. Respiratory: She is a lifelong nonsmoker. She reports she had a "collapsed lung" a few ago and had bronchoscopy. She reports her lung has returned to normal function. She does not know further details. She was hospitalized at [facility] July 2018 with acute on chronic respiratory failure with hypoxemia and hypercapnia. She had pleural effusions. Thoracentesis showed transudate. She has had no recurrence after recovery. She denies chronic lung disease and does not use home oxygen. GI: She has had cholecystectomy. She has hemorrhoids. She denies disorders of her liver or exocrine pancreas : She denies hematuria dysuria or kidney stones Neurologic: As per history of present illness Endocrine: She has hyperlipidemia. She denies diabetes or thyroid disease Hematology/oncology: She denies blood disorders cancers or anemia Psychiatric: She denies anxiety depression or other mental health issues Muscle skeletal: She has DJD and degenerative disc disease. She was told she had borderline fibromyalgia. She denies other bone joint or muscle disorders. - Constitutional Vitals: Temp Pulse Resp BP Pulse Ox 98.0 F 80 14 168/73 95 11/30/18 11:25 11/30/18 11:25 11/30/18 11:25 11/30/18 11:25 11/30/18 11:25 Exam: Gen.: She is a well-developed well-nourished female resting comfortably in bed who appears in no acute distress at present time HEENT: Head is atraumatic and normocephalic. Eyes: EOMI. There is no scleral icterus. Mouth: Mucosa is moist. Neck: There is no thyromegaly or adenopathy noted. Heart: Irregularly irregular without murmurs or gallops. Lungs: No wheezes or crackles are heard. Back: She has dorsal kyphosis. There is no flank tenderness. Abdomen: Soft and nontender. No masses or guarding are noted. Extremities: She has DJD changes of her hands. Dorsalis pedis and posterior tibial pulses are trace to 1+ palpable bilaterally. Neurologic: Mental status: She is talkative and a fair to good historian. She cannot do simple money math accurately. She was slightly inaccurate stating her home address and had difficulty choosing some words during speech. Cranial nerves: Smile is symmetric. There is slight flattening of the right nasolabial fold at rest. Forehead wrinkles bilaterally. Tongue protrudes midline. EOMI. Motor: There is slight right arm pronator drift. She does not comprehend rapid finger movement testing even after multiple instructions. Cerebellar: Finger to nose is intact bilaterally. Skin: Warm and dry Internal Med - H&P Results - Labs CBC & Chem 7: 11/29/18 17:28 11/29/18 17:28 Labs: Short CBC 11/29/18 Range/Units 17:28 WBC 8.6 (4.3-11.1) K/mcL Hgb 14.9 (11.5-15.4) g/dL Hct 43.5 (35.3-44.9) % Plt Count 224 (140-400) K/mcL BMP 11/29/18 17:28 Sodium 137 Potassium 3.4 L Chloride 99 Carbon Dioxide 27 BUN 8 Creatinine 0.59 L Glucose 111 H Calcium 9.2 Cardiac Enzymes 11/29/18 Range/Units 17:28 Troponin I < 0.03 (< 0.04) ng/mL Urine 11/29/18 Range/Units 17:44 Urine Color Yellow (Yellow) Urine Clarity Clear (Clear) Urine pH 6.5 (5.0-8.0) pH Units Ur Specific [place] 1.010 (1.010-1.025) Urine Protein Negative (Neg-Trace) mg/dL Urine Glucose (UA) Normal (Normal) mg/dL - Impressions ITS Impressions Head CT 11/29/18 17:28 IMPRESSION: No acute intracranial abnormality. Findings were discussed with Lele Barrera at 5:46 pm on 11/29/2018. D/ / Michael Hernández MD / Michael Hernández MD Interpreting Provider: Michael Hernández MD Chest X-Ray 11/29/18 17:29 IMPRESSION: Findings of pulmonary edema with small right pleural effusion and trace left pleural effusion. Bibasilar atelectasis. D/ / 11/29/2018 18:01:08 Cleveland Cleveland MD / [facility] Interpreting Provider: Cleveland Cleveland MD
[2018-11-30] MEDS ORDERED: *HR* Warfarin 5 MG TABLET PO ONE (13:00)
[2018-11-30] MEDS ORDERED: *HR* Enoxaparin 100 MG/ML SYRINGE SQ SCH ×2 (13:00→13:30)
[2018-11-30] MEDS ORDERED: *HR* Enoxaparin 100 MG/ML SYRINGE SQ ONE (13:15)
[2018-11-30] MEDS: 0.9 % Sodium Chloride 1,000 ML IVC SCH (14:00)
[2018-11-30] MEDS: Aspirin 81 MG TAB.CHEW PO SCH (14:09)
[2018-12-01 06:48] LABS: Basophils # 0.1 K/mcL (0.0-0.2); Eosinophils # 0.2 K/mcL (0.0-0.6); Eosinophils % 3.2 %; Hematocrit 43.2 % (35.3-44.9); Immature Granulocytes % 0.2 % (0-4); Lymphocytes # 1.5 K/mcL (0.6-4.6); Lymphocytes % 24.5 %; Mean Corpuscular HGB Conc 32.4 g/dL (31.6-35.5); Mean Corpuscular Hemoglobin 30.8 pg (28.0-33.3); Mean Corpuscular Volume 94.9 fL (83.0-100.0); Mean Platelet Volume 10.8 fL (9.4-12.4); Monocytes # 0.5 K/mcL (0.0-1.3); Monocytes % 7.5 %; Platelet Count 215 K/mcL (140-400); Red Blood Count 4.55 M/mcL (3.82-4.97); Red Cell Distribution Width 13.5 % (11.5-14.5); Segmented Neutrophils % 63.6 %; White Blood Count 6.3 K/mcL (4.3-11.1)
[2018-12-01] MEDS: *HR* Enoxaparin 40 MG/0.4 ML SYRINGE SQ SCH ×2 (06:55→17:59)
[2018-12-01 07:12] LABS: Alanine Aminotransferase 6 Units/L (7-52); Albumin 3.2 g/dL (3.5-5.7); Albumin/Globulin Ratio 1.1 (1.1-2.2); Alkaline Phosphatase 67 Units/L (34-104); Aspartate Amino Transferase 11 Units/L (13-39); BUN/Creatinine Ratio 11 (6-26); Bilirubin,Total 0.5 mg/dL (0.3-1.0); Blood Urea Nitrogen 6 mg/dL (8-23); Calcium 8.8 mg/dL (8.6-10.3); Carbon Dioxide 30 mEq/L (23-29); Chloride 104 mEq/L (98-107); Globulin 2.9 g/dL (2.4-3.5); Glucose 104 mg/dL (70-105); Magnesium 1.9 mg/dL (1.6-2.6); Osmolality,Calculated 284 (280-300); Sodium 138 mEq/L (136-145); Total Protein 6.1 g/dL (6.4-8.9); eGFR For African Americans > 60 (> 60); eGFR For Non-African Americans > 60 (> 60)
[2018-12-01] MEDS: Aspirin 81 MG TAB.CHEW PO SCH (08:48)
[2018-12-01] MEDS: Diltiazem CD (24hr) 120 MG CAPSULE PO SCH (08:48)
--- NOTE | 2018-12-01 09:47 | Internal Med Progress Note ---
Date of Encounter: 12/01/18 Time of Encounter: 09:35 - Assessment and plan (1) Cerebrovascular accident Current Visit: Yes Status: Acute Assessment and plan: December 01. Continue Coumadin with Lovenox until INR therapeutic. Continue PT and OT intervention. Will order ST evaluation to evaluate for swallowing safety and assist in cognition therapy. Qualifiers: CVA mechanism: unspecified Qualified Code(s): I63.9 - Cerebral infarction, unspecified (2) Hypokalemia Current Visit: Yes Status: Acute Assessment and plan: December 01. Potassium normal. Discontinue supplemental potassium. (3) Atrial fibrillation Current Visit: No Status: Chronic Assessment and plan: December 01. Continue Coumadin. Qualifiers: Atrial fibrillation type: chronic Qualified Code(s): I48.2 - Chronic atrial fibrillation (4) Hypertension Current Visit: No Status: Chronic Assessment and plan: December 01. Restart lisinopril and Cardizem. Qualifiers: Hypertension type: essential hypertension Qualified Code(s): I10 - Essential (primary) hypertension - Subjective Interval history: December 01. No new problems have arisen. - Constitutional Vitals: Temp Pulse Resp BP Pulse Ox 97.6 F 75 19 190/112 96 12/01/18 07:46 12/01/18 07:46 12/01/18 07:46 12/01/18 07:46 12/01/18 07:46 Exam: She is resting comfortably in bed and appears in no acute distress. She has no receptive dysphasia but does not have slight expressive dysphasia with word searching. There is no pronator drift. Rapid finger movements are symmetric and intact. Right nasolabial facial fold flattening appears lessened from yesterday. I reviewed her medications and lab results. Internal Medicine: Result - Labs CBC & Chem 7: 12/01/18 05:29 12/01/18 05:29 Labs: Short CBC 12/01/18 Range/Units 05:29 WBC 6.3 (4.3-11.1) K/mcL Hgb 14.0 (11.5-15.4) g/dL Hct 43.2 (35.3-44.9) % Plt Count 215 (140-400) K/mcL Neutrophils # 4.0 (1.6-8.9) K/mcL BMP 12/01/18 05:29 Sodium 138 Potassium 4.0 Chloride 104 Carbon Dioxide 30 H BUN 6 L Creatinine 0.56 L Glucose 104 Calcium 8.8 Liver Function 12/01/18 Range/Units 05:29 Total Bilirubin 0.5 (0.3-1.0) mg/dL AST 11 L (13-39) Units/L ALT 6 L (7-52) Units/L Alkaline Phosphatase 67 (34-104) Units/L Albumin 3.2 L (3.5-5.7) g/dL - ABG Interpretation ABG results: PT/INR, D-dimer PT 11.2 Seconds (9.4-12.1) 11/29/18 17:28 - Impressions Impressions Chest X-Ray 11/29/18 17:29 IMPRESSION: Findings of pulmonary edema with small right pleural effusion and trace left pleural effusion. Bibasilar atelectasis. D/ / 11/29/2018 18:01:08 Cleveland [facility] Interpreting Provider: Cleveland Cleveland MD Consult Discharge Plan - Plan Referrals: Cory Bhandari DO [Primary Care Provider] - 1 week
[2018-12-01] MEDS: Lisinopril 20 MG TABLET PO SCH (11:15)
--- NOTE | 2018-12-01 16:30 | Electrocardiograph Report ---
[place] [id number] Test Date: 2018-11-29 Pat Name: Barbara Sheridan Department: EDP-15 Room: [facility] Gender: F Pond Tender: : 1930 Requested By: Lele Barrera Order Number: [id number] Reading MD: Georgette Thrasher Measurements Intervals [place] Rate: 69 P: ME: QRS: 52 QRSD: 86 T: 80 QT: 438 QTc: 470 Interpretive Statements Atrial fibrillation Anteroseptal infarct, old Artifact Electronically Signed On 12-01-2018 16:28:40 EST by Georgette Thrasher
[2018-12-01] MEDS: *HR* Warfarin 5 MG TABLET PO SCH (17:59)
[2018-12-02] MEDS: *HR* Enoxaparin 40 MG/0.4 ML SYRINGE SQ SCH ×2 (06:01→18:00)
[2018-12-02 06:03] LABS: Basophils # 0.1 K/mcL (0.0-0.2); Basophils % 1.1 %; Eosinophils # 0.2 K/mcL (0.0-0.6); Eosinophils % 3.7 %; Hematocrit 44.2 % (35.3-44.9); Hemoglobin 14.2 g/dL (11.5-15.4); Immature Granulocytes % 0.2 % (0-4); Lymphocytes # 1.9 K/mcL (0.6-4.6); Lymphocytes % 29.7 %; Mean Corpuscular HGB Conc 32.1 g/dL (31.6-35.5); Mean Corpuscular Hemoglobin 30.9 pg (28.0-33.3); Mean Corpuscular Volume 96.1 fL (83.0-100.0); Mean Platelet Volume 10.7 fL (9.4-12.4); Monocytes # 0.5 K/mcL (0.0-1.3); Neutrophils # 3.6 K/mcL (1.6-8.9); Platelet Count 207 K/mcL (140-400); Red Cell Distribution Width 13.2 % (11.5-14.5); Segmented Neutrophils % 57.3 %; White Blood Count 6.2 K/mcL (4.3-11.1)
[2018-12-02 06:08] LABS: INR 1.4; Prothrombin Time 15.2 Seconds (9.4-12.1)
[2018-12-02] MEDS: Aspirin 81 MG TAB.CHEW PO SCH (09:08)
[2018-12-02] MEDS: Diltiazem CD (24hr) 120 MG CAPSULE PO SCH (09:08)
[2018-12-02] MEDS: Lisinopril 20 MG TABLET PO SCH (09:08)
--- NOTE | 2018-12-02 15:39 | Internal Med Progress Note ---
Date of Encounter: 12/02/18 Time of Encounter: 15:30 - Assessment and plan (1) Cerebrovascular accident Current Visit: Yes Status: Acute Assessment and plan: December 01. Continue Coumadin with Lovenox until INR therapeutic. Continue PT and OT intervention. Will order ST evaluation to evaluate for swallowing safety and assist in cognition therapy. Qualifiers: CVA mechanism: unspecified Qualified Code(s): I63.9 - Cerebral infarction, unspecified (2) Hypokalemia Current Visit: Yes Status: Acute Assessment and plan: December 01. Potassium normal. Discontinue supplemental potassium. (3) Atrial fibrillation Current Visit: No Status: Chronic Assessment and plan: December 01. Continue Coumadin. Qualifiers: Atrial fibrillation type: chronic Qualified Code(s): I48.2 - Chronic atrial fibrillation (4) Hypertension Current Visit: No Status: Chronic Assessment and plan: December 01. Restart lisinopril and Cardizem. Qualifiers: Hypertension type: essential hypertension Qualified Code(s): I10 - Essential (primary) hypertension - Subjective Interval history: December 01. No new problems have arisen. December 02. She has no new complaints. - Constitutional Vitals: Temp Pulse Resp BP Pulse Ox 97.6 F 74 18 168/92 97 12/02/18 11:24 12/02/18 11:24 12/02/18 11:24 12/02/18 11:24 12/02/18 11:24 Exam: She is resting comfortably in bed and appears in no acute distress. She moves her right arm well on observation without any focal deficits. Her speech is slightly improved from yesterday with less word grasping. I reviewed her medications and lab results. Internal Medicine: Result - Labs CBC & Chem 7: 12/02/18 05:35 12/01/18 05:29 Labs: Short CBC 12/02/18 Range/Units 05:35 WBC 6.2 (4.3-11.1) K/mcL Hgb 14.2 (11.5-15.4) g/dL Hct 44.2 (35.3-44.9) % Plt Count 207 (140-400) K/mcL Neutrophils # 3.6 (1.6-8.9) K/mcL - ABG Interpretation ABG results: PT/INR, D-dimer PT 15.2 Seconds (9.4-12.1) H 12/02/18 05:35 Consult Discharge Plan - Plan Referrals: Cory Bhandari DO [Primary Care Provider] - 1 week
[2018-12-02] MEDS: *HR* Warfarin 5 MG TABLET PO SCH (18:01)
[2018-12-03] MEDS: *HR* Enoxaparin 40 MG/0.4 ML SYRINGE SQ SCH ×2 (05:40→17:32)
[2018-12-03 06:27] LABS: INR 1.6; Prothrombin Time 18.2 Seconds (9.4-12.1)
[2018-12-03] MEDS: Diltiazem CD (24hr) 120 MG CAPSULE PO SCH (09:02)
[2018-12-03] MEDS: Aspirin 81 MG TAB.CHEW PO SCH (09:03)
[2018-12-03] MEDS: Lisinopril 20 MG TABLET PO SCH (09:03)
--- NOTE | 2018-12-03 12:49 | Internal Med Progress Note ---
Date of Encounter: 12/03/18 Time of Encounter: 12:40 - Assessment and plan (1) Cerebrovascular accident Current Visit: Yes Status: Acute Assessment and plan: December 01. Continue Coumadin with Lovenox until INR therapeutic. Continue PT and OT intervention. Will order ST evaluation to evaluate for swallowing safety and assist in cognition therapy. December 03. INR still subtherapeutic. Continue Lovenox with Coumadin. Continue therapy intervention. Anticipate discharge to SNF in 1-2 days. Qualifiers: CVA mechanism: unspecified Qualified Code(s): I63.9 - Cerebral infarction, unspecified (2) Hypokalemia Current Visit: Yes Status: Acute Assessment and plan: December 01. Potassium normal. Discontinue supplemental potassium. (3) Atrial fibrillation Current Visit: No Status: Chronic Assessment and plan: December 01. Continue Coumadin. Qualifiers: Atrial fibrillation type: chronic Qualified Code(s): I48.2 - Chronic atrial fibrillation (4) Hypertension Current Visit: No Status: Chronic Assessment and plan: December 01. Restart lisinopril and Cardizem. December 03. Increase lisinopril to 40 mg daily. Continue diltiazem 240 mg daily. Qualifiers: Hypertension type: essential hypertension Qualified Code(s): I10 - Essential (primary) hypertension - Subjective Interval history: December 01. No new problems have arisen. December 02. She has no new complaints. December 03. She has no new complaints. - Constitutional Vitals: Temp Pulse Resp BP Pulse Ox 97.1 F L 79 16 183/93 96 12/03/18 08:01 12/03/18 08:01 12/03/18 08:01 12/03/18 08:01 12/03/18 08:01 Exam: She is resting comfortably in bed and appears in no acute distress. Her affect is bright and cheerful. I reviewed her medications, vitals, and lab results. Internal Medicine: Result - Labs CBC & Chem 7: 12/02/18 05:35 12/01/18 05:29 - ABG Interpretation ABG results: PT/INR, D-dimer PT 18.2 Seconds (9.4-12.1) H 12/03/18 05:38 Consult Discharge Plan - Plan Referrals: Cory Bhandari DO [Primary Care Provider] - 1 week
[2018-12-03] MEDS ORDERED: *HR* Warfarin 3 MG TABLET PO SCH (18:00)
[2018-12-04] MEDS: *HR* Enoxaparin 40 MG/0.4 ML SYRINGE SQ SCH (06:06)
[2018-12-04 06:09] LABS: Basophils # 0.1 K/mcL (0.0-0.2); Basophils % 1.1 %; Eosinophils # 0.2 K/mcL (0.0-0.6); Eosinophils % 3.7 %; Hematocrit 42.7 % (35.3-44.9); Hemoglobin 13.8 g/dL (11.5-15.4); Immature Granulocytes % 0.2 % (0-4); Lymphocytes # 1.8 K/mcL (0.6-4.6); Lymphocytes % 32.8 %; Mean Corpuscular HGB Conc 32.3 g/dL (31.6-35.5); Mean Corpuscular Hemoglobin 31.2 pg (28.0-33.3); Mean Corpuscular Volume 96.4 fL (83.0-100.0); Mean Platelet Volume 11.2 fL (9.4-12.4); Monocytes # 0.5 K/mcL (0.0-1.3); Monocytes % 8.6 %; Neutrophils # 2.9 K/mcL (1.6-8.9); Platelet Count 187 K/mcL (140-400); Red Blood Count 4.43 M/mcL (3.82-4.97); Red Cell Distribution Width 13.2 % (11.5-14.5); Segmented Neutrophils % 53.6 %; White Blood Count 5.4 K/mcL (4.3-11.1)
[2018-12-04 06:29] LABS: BUN/Creatinine Ratio 20 (6-26); Blood Urea Nitrogen 12 mg/dL (8-23); Calcium 9.1 mg/dL (8.6-10.3); Carbon Dioxide 28 mEq/L (23-29); Chloride 102 mEq/L (98-107); Glucose 103 mg/dL (70-105); INR 1.9; Osmolality,Calculated 286 (280-300); Potassium 3.8 mEq/L (3.5-5.1); Prothrombin Time 21.1 Seconds (9.4-12.1); Sodium 138 mEq/L (136-145); eGFR For African Americans > 60 (> 60); eGFR For Non-African Americans > 60 (> 60)
[2018-12-04 06:53] VITALS: BP 164/94
[2018-12-04] MEDS ORDERED: Lisinopril 20 MG TABLET PO SCH (09:00)
[2018-12-04] MEDS: Aspirin 81 MG TAB.CHEW PO SCH (10:22)
[2018-12-04] MEDS: Diltiazem CD (24hr) 120 MG CAPSULE PO SCH (10:25)
--- NOTE | 2018-12-04 15:17 | Discharge Summary ---
Orders not resulted at time of discharge: Pending orders 11/29/18 17:36 EKG [ECG 12 lead ECG] [ECG] Stat Date of Encounter: 12/04/18 Time of Encounter: 15:10 - Discharge Diagnosis (1) Cerebrovascular accident Priority: Primary Status: Acute Qualifiers: CVA mechanism: unspecified Qualified Code(s): I63.9 - Cerebral infarction, unspecified (2) Hypokalemia Priority: Secondary Status: Resolved (3) Atrial fibrillation Priority: Secondary Status: Chronic Qualifiers: Atrial fibrillation type: chronic Qualified Code(s): I48.2 - Chronic atrial fibrillation (4) Hypertension Priority: Secondary Status: Chronic Qualifiers: Hypertension type: essential hypertension Qualified Code(s): I10 - Essential (primary) hypertension Hospital course: Ms. Sheridan is a 88 year old female who was brought to emergency room after her daughter noticed abrupt neurologic deficit with patient slumped toward her right side in the chair and having right arm weakness. She was aphasic in had decreased level of consciousness. She was evaluated in emergency room where head CT scan showed no evidence of bleed. Family did not want her transferred for aggressive workup or intervention. She was admitted to [facility] for ongoing care needs. Initial orders were written by the emergency room physician. I saw her on November 30 and performed a history and physical. She was started on Lovenox and Coumadin. Aspirin was continued. INR was 1.9 on day of discharge to SNF. She had significant improvement of her acute neurologic deficit with only very slight residual speech abnormalities remaining at the time of discharge. She had no residual focal motor deficits of her right arm or leg. She was seen by PT, OT, and ST. She will continue to receive therapy at the SNF. Permissive hypertension was initially allowed. She will be on lisinopril 40 mg daily and Cardizem LA 240 mg daily at the residential. On December 04 word was received from her insurance she could be discharged to [facility] for ongoing rehabilitation therapy. She will follow with me there. - Time Spent with Patient Total time spent providing and/or coordinating discharge services: - Discharge Medications Prescriptions: New Warfarin [Coumadin] 6 mg PO DAILY@1800 tablet Continue Cholecalciferol (D-3) [Vitamin D] 1,000 unit PO DAILY Lovastatin [Mevacor] 20 mg PO HS Diltiazem HCl [Diltiazem 24Hr Cd] 240 mg PO DAILY Cyanocobalamin (Vitamin B-12) [Vitamin B-12] 1,000 mcg PO DAILY Aspirin [Lo-Dose Aspirin EC] 81 mg PO DAILY Acetaminophen [Acetaminophen ER] 650 mg PO Q6HR Albuterol Sulfate [Albuterol Inhaler] 1 puff IH Q6HR Changed Lisinopril [Zestril] 40 mg PO DAILY 365 Days tablet Home Medications: Aspirin [Lo-Dose Aspirin EC] 81 mg PO DAILY 08/20/18 [History] Cholecalciferol (D-3) [Vitamin D] 1,000 unit PO DAILY 08/20/18 [History] Cyanocobalamin (Vitamin B-12) [Vitamin B-12] 1,000 mcg PO DAILY 08/20/18 [History] Diltiazem HCl [Diltiazem 24Hr Cd] 240 mg PO DAILY 08/20/18 [History] Lovastatin [Mevacor] 20 mg PO HS 08/20/18 [History] Acetaminophen [Acetaminophen ER] 650 mg PO Q6HR 11/29/18 [History] Albuterol Sulfate [Albuterol Inhaler] 1 puff IH Q6HR 11/29/18 [History] Lisinopril [Zestril] 40 mg PO DAILY 365 Days tablet 12/04/18 [Rx] Warfarin [Coumadin] 6 mg PO DAILY@1800 tablet 12/04/18 [Rx] Allergies/Adverse Reactions: Allergy/AdvReac Type Severity Reaction Status Date / Time codeine Allergy Agitated Verified 08/20/18 11:02 Date of admission: 11/30/18 17:21 Primary care physician: Cory Bhandari DO Consults: 11/30/18 12:22 Consult to Occupational Therapy [CONS] Routine Comment: Evaluate, develop and implement POC Reason for Consult: Acute neurologic deficit Does patient have active BEDREST order?: No Is patient medically & hemodynamically stable?: Yes Patient assessed for mobility or mobilized this visit?: Yes 11/30/18 12:23 Consult to Physical Therapy [CONS] Routine Comment: Evaluate, develop and implement POC Reason for Consult: Acute neurologic deficit Does patient have active BEDREST order?: No Is patient medically & hemodynamically stable?: Yes Patient assessed for mobility or mobilized this visit?: Yes 12/01/18 09:50 Consult to Speech Therapy [CONS] Routine Comment: Evaluate, develop and implement POC Reason for Consult: CVA Call Completed: No - Constitutional Vitals: Temp Pulse Resp BP Pulse Ox 97.3 F L 74 16 164/94 91 12/04/18 06:00 12/04/18 06:00 12/04/18 06:00 12/04/18 06:00 12/04/18 06:00 - Patient Status Disposition: Transfer SNF Condition: Serious - Discharge Instructions Follow Up With: Cory Bhandari DO [Primary Care Provider] - 1 week - Diet and Activity Activity: as per physical therapy Diet: regular diet - Stroke Contraindication Rehab Services Not Assessed: Symptoms Resolved
--- NOTE | 2018-12-04 15:23 | Physician Discharge Referral ---
ExtendedCare Referral Info Transfer To: [facility] Provider in Charge: Sixto Provider in Charge after Transfer: PCP Gudelia) Institutional Level of Care: Skilled - Diagnosis (1) Cerebrovascular accident Priority: Primary Status: Acute (2) Hypokalemia Priority: Secondary Status: Resolved (3) Atrial fibrillation Priority: Secondary Status: Chronic (4) Hypertension Priority: Secondary Status: Chronic Prognosis: Good Aware of Diagnosis: Patient, Family Aware of Prognosis: Patient, Family - Transfer Medications Home Medications: Aspirin [Lo-Dose Aspirin EC] 81 mg PO DAILY 08/20/18 [History] Cholecalciferol (D-3) [Vitamin D] 1,000 unit PO DAILY 08/20/18 [History] Cyanocobalamin (Vitamin B-12) [Vitamin B-12] 1,000 mcg PO DAILY 08/20/18 [History] Diltiazem HCl [Diltiazem 24Hr Cd] 240 mg PO DAILY 08/20/18 [History] Lovastatin [Mevacor] 20 mg PO HS 08/20/18 [History] Acetaminophen [Acetaminophen ER] 650 mg PO Q6HR 11/29/18 [History] Albuterol Sulfate [Albuterol Inhaler] 1 puff IH Q6HR 11/29/18 [History] Lisinopril [Zestril] 40 mg PO DAILY 365 Days tablet 12/04/18 [Rx] Warfarin [Coumadin] 6 mg PO DAILY@1800 tablet 12/04/18 [Rx] Allergies/Adverse Reactions: Allergy/AdvReac Type Severity Reaction Status Date / Time codeine Allergy Agitated Verified 08/20/18 11:02 - Respiratory Orders Smoking Cessation: Smoking cessation has been advised. For more information, call the [place] Tobacco Quit Line at 3-355-YAXP-NOW. - Lab Orders Lab Orders: Other (include drug levels w/frequency) (PT INR in 3 days then every Tuesday. CBC with differential, BMP in 1 week.) - Mobility Orders Ambulate - Rehabiliation Orders Rehab Potential: Good Rehab Orders: Evaluation for Physical Therapy, Evaluation for Occupational Therapy - Diet Orders Regular CERTIFICATION: I certify that the transfer of the above named patient to an Extended Care Facility is necessary for the continuing treatment of the diagnosis listed. The above information is true and accurate reflection of patient's current condition. Confidential - Redisclosure prohibited without a patient's written consent.
== END 2018-12-04 15:30 | DRG 66 ==
LOC: EMEROOPIK 17:20 → INPPIK 17:20 → OBSVTOIN 18:56 → INPPIK 19:39
PROVIDERS: ADMIT Internal Medicine; ATTEND Internal Medicine